=== PATIENT | female | born 1975 | race Caucasian/White ===

== ENCOUNTER 2023-03-30 13:37 | Outpatient (REF) | payer OTHER, SELFPAY ==
--- NOTE | ~2023-03-30 | XR_ITS ---
EXAMINATION: XR LUMBOSACRAL SPINE WITH OBLIQUES CLINICAL INFORMATION: Known from outside institution compression fracture of L1 COMPARISON: None available. TECHNIQUE: AP, lateral, lateral flexion and extension views, obtained upright. FINDINGS: Vertebral bodies are well aligned. Intervertebral discs are preserved. There is exaggerated lordosis. There is compression deformity of L1 vertebral body with subchondral sclerosis of indeterminate age. There is no evidence of instability on flexion and extension views and no spondylolysis or listhesis seen. Sacroiliac joints unremarkable. XR/XR lumbar spine 4V min IMPRESSION: Remote compression deformity of L1 vertebral body.
== END 2023-03-30 13:38 | disposition home or self-care (01) ==
LOC: HO.HOSX 13:37
PROVIDERS: Visit Provider Physician Assistant
DX: S32.010A Wedge compression fracture of first lumbar vertebra, initial encounter for closed fracture (principal)
CPT/HCPCS: 72110

== ENCOUNTER 2023-03-30 13:37 | Outpatient (AMB) | payer OTHER, SELFPAY ==
--- NOTE | 2023-03-30 13:45 | HO.SPINEOV ---
Intake Intake Visit Reasons: low back pain Intake Note: Ms. Jacob is here today c/o low back pain. MRI done @ [facility]/brought disc. 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 She is a 47-year-old female who presents to the office today for evaluation of an L1 compression fracture. The patient was dancing at a constitution party in December 26 and slipped backwards and fell. She immediately felt a pop and severe back pain in the upper lumbar region. She went to the emergency room in [place] where she was staying. They did an x-ray showing an L1 compression fracture. She tells me that at some point along the line as things do not continue to improve she underwent an MRI showing a compression fracture. Also there was an incidentally noted T2 hyperintense spot in the left S2 pedicle seen as well. The patient reports that although the very severe pain that she had when it 1st happened is getting better, there is still a nagging sensation in her mid to upper lumbar region that just does not go away. Especially at the end of day when she is working it can become unbearable. She takes Ketoralac, ibuprofen, Flexeril and lidocaine patches as needed. She has a little bit of tingling in her right toes but otherwise no neurological symptoms to report. No radicular symptoms. She is here today to be seen as to whether there is any intervention or surgery that can be done to help fix this. PMH: She has a history of psoriasis, GERD, insomnia, , lipoma removal, cholecystectomy, bladder sling, bariatric surgery, colon resection because of diverticulitis. Social hx: She is smoking about 3/4 of a packs a day. Medications: Bupropion, multivitamins, calcium, citalopram, Cosentyx, cyclobenzaprine, hydrochlorothiazide, ibuprofen, Ketoralac, lidocaine patches, omeprazole, Ambien Allergies: No drug allergies Physical exam: She is awake alert oriented, gait is normal, strength sensation and reflexes all normal Imaging review: Lumbar MRI done in 02/10/2023 at [facility] reveals an acute STIR hyperintense compression fracture at L1 with no significant retropulsion but about 30-40% height loss. There is incidentally noted on the sagittal view a small hyperintense T2 spot the left pedicle. It does not appear to have any malignant features. We did standing x-rays here in the office and this did not show any significant misalignment with flexion or extension. Impression: 47-year-old female dealing with 3 months of chronic back pain in the upper lumbar region not getting better, consistent with L1 compression fracture as outlined above in the MRI. The patient has tried medications and nothing seems to be working. It is significantly affecting her quality of life. Dr. Fernando and I met with her, he offered her an L1 kyphoplasty. All pertinent risks and benefits were discussed. We also discussed the fact that she has very early onset osteopenia/osteoporosis and should consider aggressive treatment for this nor to prevent these problems down the road, including smoking cessation as well. We have tentatively booked her for April 29. The patient will stop her Cosentyx 1 month prior surgery. With regard to the T2 intense signal on the S2 pedicle, this can be followed up with another MRI in 6 months as recommended by the radiologist. Pt was given risk and benefits of surgery including but not limited to infection, hematoma , nerve injury,durotomy, weakness,bowel/bladder injury, persistent pain, as well as the option to continue with conservative treatment and patient wishes to proceed with surgery. Pt is aware they should stop their motrin, aspirin 7 days prior to surgery. All questions were answered to the best of our ability. If there is anything about this patients medical history that we have overlooked or concerns you have about us proceeding with surgery we would appreciate any input you can offer. Thank you for allowing us to care for your patient. The total time spent with this visit with this patient was 45 minutes reviewing history, physical exam, lumbar MRI imaging review, and implementation of treatment plan or further diagnostic testing Bardley Fernando MD,PhD [facility] Orders: Orders XR lumbar spine 4V min Today S32.010A - Wedge compression fracture of first lumbar vertebra, initial encounter for closed fracture Coding Level of Care Code New Pt Level 4 (80469) Diagnoses Compression fracture of L1 lumbar vertebra S32.010A
== END 2023-03-30 15:06 | disposition home or self-care (01) ==
PROVIDERS: Referring Provider Family Medicine; Visit Provider Physician Assistant
DX: S32.010A Wedge compression fracture of first lumbar vertebra, initial encounter for closed fracture (principal)
CPT/HCPCS: 99204

== ENCOUNTER 2023-04-27 11:08 | Day surgery (SDC) | payer OTHER, SELFPAY ==
[2023-04-14 14:26] VITALS: BMI 31.4
--- NOTE | 2023-04-26 11:56 | P.CONAN_ITS ---
Documented by User: Mima Littlejohn NP 04/26/23 11:58 HPI - Anesthesia Eval Consult details Narrative: 47yo F for L1 Kyphoplasty s/p tubal PMFSH Active Problems Active Problems: All Active Problems (Updated 04/14/23 @ 14:28 by Lyndsey Garcia RN) Compression fracture of L1 lumbar vertebra (Acute) Past Medical History Medical History IBS (irritable bowel syndrome) Psoriatic arthritis Migraine Sleep apnea Tobacco dependence Diverticulitis Insomnia GERD (gastroesophageal reflux disease) Compression fracture of L1 vertebra Surgical History Surgical History Hx of dilation and curettage Hx of tubal ligation History of colon resection Hx of bariatric surgery History of pubovaginal sling Hx of excision of mass Hx of cholecystectomy Hx of section Social History Social History Are you a primary special needs child caregiver to a significant other at home: No Do you presently have visiting nurse or other home services: No Patient Tobacco Use Status: Current everyday Tobacco user Tobacco use type: Cigarette Cigarettes Per Day: 4 Years Smoked: 30 Use of substances other than those prescribed or required for medical reasons: No Have you been hit, kicked, punched, or otherwise hurt by someone within the past year? If so, by whom?: No Are you DNR?: No Advance Directives: No Advance Directives Information Provided: Yes (brochure mailed) Advance Directives on File: No Recently lost weight without trying: No Eating poorly because of decreased appetite: No Nutrition Risks: No Nutritional Risk Patient : No FDLMP: N/A Poor oral hygiene: No Meds Allergies Allergy/AdvReac Type Severity Reaction Status Date / Time Unable to Assess Allergy Verified 04/21/23 09:46 Home Medications Medication Instructions Recorded Confirmed Last Taken Type bupropion HCl 150 mg tablet,12 hr 150 mg PO BID 04/14/23 04/14/23 Unknown History sustained-release calcitonin (salmon) 200 1 spray intranasal QAM 04/14/23 04/14/23 Unknown History unit/actuation nasal spray citalopram 20 mg tablet 20 mg PO BEDTIME 04/14/23 04/14/23 Unknown History hydrochlorothiazide 25 mg tablet 25 - 50 mg PO DAILY 04/14/23 04/14/23 Unknown History ibuprofen 800 mg tablet 800 mg PO TID PRN Pain 04/14/23 04/14/23 Unknown History ketorolac 10 mg tablet 10 mg PO Q6H 04/14/23 04/14/23 Unknown History lidocaine 5 % topical patch 1 patch topical DAILY 04/14/23 04/14/23 Unknown History (Lidoderm) omeprazole 20 mg capsule,delayed 20 mg PO DAILY 04/14/23 04/14/23 Unknown History release secukinumab 150 mg/mL subcutaneous 300 mg subcut Q4W 04/14/23 04/14/23 Unknown History syringe (Cosentyx) zolpidem 10 mg tablet 10 mg PO DAILY 04/14/23 04/14/23 Unknown History Exam Exam Date and Time: April 26, 2023 115 Height,Weight and Vital Signs: Height 5 ft 5 in Weight 85.729 kg Assessment and Plan Assessment Anesthesia Assessment: Chart Reviewed Documented by User: Nirav Park MD 04/27/23 12:57 PMF Past Medical History Medical History IBS (irritable bowel syndrome) Psoriatic arthritis Migraine Sleep apnea Tobacco dependence Diverticulitis Insomnia GERD (gastroesophageal reflux disease) Compression fracture of L1 vertebra Family History Family history of problems with anesthesia: No Surgical History Surgical History Hx of dilation and curettage Hx of tubal ligation History of colon resection Hx of bariatric surgery History of pubovaginal sling Hx of excision of mass Hx of cholecystectomy Hx of section History of Problems with Anesthesia: No Social History Social History Are you a primary special needs child caregiver to a significant other at home: No Do you presently have visiting nurse or other home services: No Patient Tobacco Use Status: Current everyday Tobacco user Tobacco use type: Cigarette Cigarettes Per Day: 4 Years Smoked: 30 Use of substances other than those prescribed or required for medical reasons: No Have you been hit, kicked, punched, or otherwise hurt by someone within the past year? If so, by whom?: No Are you DNR?: No Advance Directives: No Advance Directives Information Provided: Yes (brochure mailed) Advance Directives on File: No Recently lost weight without trying: No Eating poorly because of decreased appetite: No Nutrition Risks: No Nutritional Risk Patient : No FDLMP: N/A Poor oral hygiene: No Meds Allergies Allergy/AdvReac Type Severity Reaction Status Date / Time Unable to Assess Allergy Verified 04/21/23 09:46 Home Medications Medication Instructions Recorded Confirmed Last Taken Type bupropion HCl 150 mg tablet,12 hr 150 mg PO BID 04/14/23 04/14/23 Unknown History sustained-release calcitonin (salmon) 200 1 spray intranasal QAM 04/14/23 04/14/23 Unknown History unit/actuation nasal spray citalopram 20 mg tablet 20 mg PO BEDTIME 04/14/23 04/14/23 Unknown History hydrochlorothiazide 25 mg tablet 25 - 50 mg PO DAILY 04/14/23 04/14/23 Unknown History ibuprofen 800 mg tablet 800 mg PO TID PRN Pain 04/14/23 04/14/23 Unknown History ketorolac 10 mg tablet 10 mg PO Q6H 04/14/23 04/14/23 Unknown History lidocaine 5 % topical patch 1 patch topical DAILY 04/14/23 04/14/23 Unknown History (Lidoderm) omeprazole 20 mg capsule,delayed 20 mg PO DAILY 04/14/23 04/14/23 Unknown History release secukinumab 150 mg/mL subcutaneous 300 mg subcut Q4W 04/14/23 04/14/23 Unknown History syringe (Cosentyx) zolpidem 10 mg tablet 10 mg PO DAILY 04/14/23 04/14/23 Unknown History Exam Airway Mallampati Class: III TM Dist: >3cm Neck ROM: Full Assessment and Plan Assessment Anesthesia Assessment: Anesthesia Plan Discussed and Smoking Cess. Discussed Final Anesthetic Review Family History of Problems with Anesthesia: No History of Problems with Anesthesia: No NPO: Yes ASA Class: III Final Preanesthetic Review: No Changes in Pt Med Stat, Meds/Allgs Chart Reviewed, Consent Obtained/Reviewed and Anes Risks/Benef Reviewed Patient Risk: Intermediate Procedure Risk: Low Anesthetic Plan Anesthetic Plan: GA Disposition: Standard PACU
[2023-04-27] VITALS (9 sets, daily range): BP systolic 103–113; BP diastolic 52–65; PULSE 72–90; RESP 14–18; TEMP 36.1–36.7; O2SAT 96–100
--- NOTE | ~2023-04-27 | FL_ITS ---
EXAMINATION: XR FLUOROSCOPY WITH IMAGES CLINICAL INFORMATION: L1 kyphoplasty. COMPARISON: Lumbar spine x-ray April 02 TECHNIQUE: Fluoroscopy Supervised By: Dr. Roberto Fernando. Fluoroscopy Time: 1.1 minute. Cumulative Dose: 84.4 mGy. DAP: 6.105 Gycm2. Images: 2. FINDINGS: Images demonstrate new cement L1 vertebral body. There is a moderate L1 vertebral body fracture otherwise unchanged from March 2023 x-ray FL/FL guidance in OR IMPRESSION: Fluoroscopy guidance for kyphoplasty
--- NOTE | 2023-04-27 07:05 | MHC.SHP ---
Pre-Procedural Eval Section A Date of Service: 04/27/23 Section B Chief Complaint: Wedge compression fracture of first lumbar vertebr Allergies: Allergies Allergy/AdvReac Type Severity Reaction Status Date / Time Unable to Assess Allergy Verified 04/21/23 09:46 Review of Systems Sugical H&P ROS: Negative: Constitution, Cardiovascular, Respiratory, Neurological, Psychiatric, Hem-Onc, Allergic/Immunologic, Gastrointestinal, Genitourinary, Musculoskeletal, Integumentary, Endocrine and Eyes/Ears/Nose/Throat Exam Surgical H&P Exam: Not Evaluated: HEENT, Not Evaluated: Heart, Not Evaluated: Lungs, Not Evaluated: Extremities, Not Evaluated: Abdomen, Not Evaluated: Skin and Not Evaluated: Neurological Plan Diagnosis/Plan: Unchanged I have reviewed the history and physical and performed a pertinent physical examination on my patient. No changes have occurred unless specified. Plan remains the same, L1 kyphoplasty Time Spent With Patient Time: Total time managing care of this patient today _10___ minutes.
[2023-04-27] MEDS: Scopolamine 1.5 MG PATCH.TD.3 EAR-BEHIND (12:43)
[2023-04-27] MEDS: methocarbamoL 750 MG TABLET PO (12:43)
[2023-04-27] MEDS: Gabapentin 300 MG CAPSULE PO (12:43)
--- NOTE | 2023-04-27 14:52 | W.PM.OPN ---
Operative Note Operative Note Date of Service: 04/27/23 Narrative: Preop diagnosis: [id number] fracture Postop diagnosis: Same Procedure: L1 kyphoplasty Surgeon: Roberto Fernando MD Assist: None Description of procedure: this 47-year-old female suffered an L1 compression fracture. She continues to suffer from chronic back pain with hyperintensity on STIR image.The patient was offered a kyphoplasty. The procedure complications were explained. The patient was consented. The patient was brought to the operating room and endotracheally intubated. The patient was turned in a prone position on the [place]ano spine table. Two C- arms were installed for fluoroscopy. Prepping and draping were done followed by time-out. A stab incision was made lateral from the L1 pedicle after which a Jamshidi needle was inserted and advanced transpedicular into the vertebral body. This was done bilaterally. A drill was advanced towards the posterior 1/3 of the vertebral body through the canula bilaterally. Accordingly, dilating balloons were inserted bilaterally and inflated under AP and lateral fluoroscopic guidance. The balloons were deflated and the cavities were filled with cement under fluoroscopic guidance. No extra vertebral leakage occurred . The Jamshidi needles were removed. The stab incisions were approximated with Dermabond. All sponge needle counts were correct. Patient was extubated and transported in stable to recovery room. Anesthesia: General Estimated blood loss: Minimal Specimen: None Surgical time: Deposition: Discharged home
--- NOTE | 2023-04-27 15:18 | PM.DS ---
DS: Providers Provider Date of Service: 04/27/23 Primary care physician: Christie Amato PA-C DS: Summary Time Attestation Discharge coordination time: Less than 30 minutes Quality: Safe Use of Opioids Does Pt have an Active Cancer Diagnosis on the Problem List?: No Quality: Stroke Does the patient have a stroke diagnosis?: No Physical Exam Vital Signs: Vital Signs: Last Vital Signs Temp 97.1 F 04/27/23 15:06 Pulse 75 04/27/23 15:16 Resp 16 04/27/23 15:16 BP 112/65 04/27/23 15:16 Pulse Ox 98 04/27/23 15:16 O2 Del Method Room Air 04/27/23 15:16 O2 Flow Rate 6 04/27/23 15:11 BMI result Body Mass Index 31.4 Discharge Plan Discharge Patient Disposition: Home, Self-Care Referrals: Christie Amato PA-C [Primary Care Provider] - 1 Week Discharge Medications: New oxycodone 5 mg tablet 5 mg PO Q8H PRN (Reason: severe pain (scale score 7-10)) Qty: 21 0RF Rx Instructions: Partial Fill upon patient request. Continued bupropion HCl 150 mg tablet sustained-release 12 hr 150 mg PO BID ibuprofen 800 mg tablet 800 mg PO TID PRN (Reason: Pain) ketorolac 10 mg tablet 10 mg PO Q6H citalopram 20 mg tablet 20 mg PO BEDTIME zolpidem 10 mg tablet 10 mg PO DAILY No Action calcitonin (salmon) 200 unit/actuation spray,non-aerosol 1 spray intranasal QAM lidocaine [Lidoderm] 5 % Adhesive Patch,Medicated 1 patch TOPICAL DAILY Rx Instructions: leave on most painful area for up to 12 hrs omeprazole 20 mg capsule,delayed release(DR/EC) 20 mg PO DAILY hydrochlorothiazide 25 mg tablet 25 - 50 mg PO DAILY Cosentyx 150 mg/mL Syringe 300 mg SUBCUT Q4W Rx Instructions: start 4 wks after last weekly dose;inject [id number] doses each in different thigh/upper arm/abdominal areas Discharge Orders: Discharge Order (Routine); Ordered 04/27/23 Ordered By: Nik Breaux Diet: Advance to usual diet Activity on Discharge: As tolerated Activity Restrictions/Additional Instructions: After your spinal surgery we ask you to observe the following restrictions/guidelines: Activity: It is normal to feel some discomfort as you increase your activity, but that will improve with time. We ask you avoid heavy lifting or acitivities that cause pain. As a general rule, 8lbs is a safe limit for lifting right after surgery. Walk as much as you feel comfortable but not to exhaustion. You will feel extra tired the first few days after surgery. Stay well hydrated. It is OK to walk up and down stairs You may return to driving when you are off narcotics (such as vicodin, oxycodone, dilaudid, etc), and you are back to normal functional capacity. If you have any concerns please check with office before driving. Return to work is specific to each patient and each surgery, so please speak with your doctor/PA at first follow up. Please bring paperwork such as FMLA at that time if you need it filled out. Medications: We will give you a short supply of narcotics after surgery (usually one weeks worth). If you need more please call the office but do not use more than prescribed. You will need to give our office 48 hours notice if you need narcotics refilled and we do not fill narcotics on weekends or evenings. If you are on a narcotic, it is a good idea to take a stool softener such as colace or senna to avoid constipation If you take blood thinner such as aspirin, Plavix, Coumadin, Effient, Eliquis etc for conditions such as Afib, DVT, Pulmonary embolus, coronary disease, stents etc please speak with your surgeon about specific details as to when you can resume these medications. You can resume NSAIDs on post op day 1 (eg: Motrin, Naproxen, etc). Follow up: Please call the office, , after surgery to arrange a 3 week follow up for wound check. Wound Care: You may remove your dressing on the first day after surgery. You may leave open to air. Please do not remove the steri strips underneath. they will fall off on their own in one week. IT IS NORMAL FOR THE WOUND TO OOZE OR BE BLOODY FOR A FEW DAYS AFTER SURGERY. IF THIS HAPPENS JUST PLACE NEW DRESSING OVER IT TO AVOID STAINING CLOTHES. You may shower on post op day # 1 We ask that you do not let the water soak the wound. If it does get wet, just towel dry lightly. Please do not scrub your incision or place any type of chemical/ointment on the wound. No tub baths, pools or jacuzzis for one month. If you have any leaking or redness from your wound, or fevers, please call the office.
== END 2023-04-27 16:33 | disposition home or self-care (01) ==
PROVIDERS: PCP Physician Assistant Medical; Visit Provider Neurological Surgery
PROC: (CPT 22514; principal; 2023-04-27 13:20)
DX: S32.010A Wedge compression fracture of first lumbar vertebra, initial encounter for closed fracture (principal); G89.29 Other chronic pain; M54.50 Low back pain, unspecified; G47.33 Obstructive sleep apnea (adult) (pediatric); W01.0XXA Fall on same level from slipping, tripping and stumbling without subsequent striking against object, initial encounter; Y93.41 Activity, dancing; Y92.9 Unspecified place or not applicable; Y99.8 Other external cause status; L40.50 Arthropathic psoriasis, unspecified; K21.9 Gastro-esophageal reflux disease without esophagitis; Z98.84 Bariatric surgery status; Z90.49 Acquired absence of other specified parts of digestive tract; Z98.890 Other specified postprocedural states; Z79.1 Long term (current) use of non-steroidal anti-inflammatories (NSAID); Z79.899 Other long term (current) drug therapy; F17.210 Nicotine dependence, cigarettes, uncomplicated
CPT/HCPCS: 22514; C1713; J0131; J0690; J1100; J2250; J2405; J2704; J3010; Q9967

== ENCOUNTER → 2023-04-27 11:08 | Outpatient (BNV) | payer OTHER, SELFPAY | PROVIDERS: PCP Physician Assistant Medical; Visit Provider Neurological Surgery | DX: S32.010A Wedge compression fracture of first lumbar vertebra, initial encounter for closed fracture (principal) | CPT/HCPCS: 22514; 99499 ==